=== PATIENT | female | born 1950 | race Caucasian/White ===

== ENCOUNTER → 2017-11-15 | Outpatient (CLI) | payer OTHER, MEDICARE | LOC: M.RAD 15:49 | DX: M47.892 Other spondylosis, cervical region (principal) ==

== ENCOUNTER → 2021-02-17 | Outpatient (CLI) | payer OTHER | LOC: M.ULTRA 11:27 | PROVIDERS: ATTEND Specialist | DX: I87.2 Venous insufficiency (chronic) (peripheral) (principal); I83.899 Varicose veins of unspecified lower extremity with other complications; R60.9 Edema, unspecified; I10 Essential (primary) hypertension ==